=== PATIENT | male | born 1945 | race Caucasian/White ===

== ENCOUNTER → 2016-12-28 14:00 | Outpatient (CLI) | payer MEDICARE, OTHER ==
[2016-12-28 14:36] LABS: BASOPHILS 0.5 % (0.0-2.0); EOSINOPHILS 4.2 % (0-7); HEMATOCRIT 44.7 % (42.0-54.0); HEMOGLOBIN 14.8 g/dL (13.5-17.5); IMMATURE GRANULOCYTES 0.2 % (0-5); MCH 30.9 pg (26.0-34.0); MCHC 33.1 g/dL (31.0-37.0); MCV 93.3 fL (80.0-100.0); MEAN PLATELET VOLUME 9.9 fL (7.4-10.4); MONOCYTES 5.1 % (2-11); PLATELET COUNT 168 10x3/uL (130-400); RBC 4.79 10x6/uL (4.20-6.10); RDW 13.3 % (11.5-14.5); WBC 5.5 10x3/uL (4.8-10.8)
[2016-12-28 14:47] LABS: HEMOGLOBIN A1C 5.8 % (4.8-6.0)
[2016-12-28 15:06] LABS: ALBUMIN 3.9 g/dL (3.4-5.0); ANION GAP 10.6 mmol/L (8-16); BILIRUBIN - TOTAL 0.35 mg/dL (0.2-1.3); CALCIUM 8.7 mg/dL (8.5-10.1); CARBON DIOXIDE 29.5 mmol/L (21.0-32.0); CHOL - HDL RATIO 3.9 ratio (2.3-4.9); CREATININE - SERUM 1.1 mg/dL (0.6-1.3); LDL-HDL RATIO 1.7 ratio (1.5-3.5); POTASSIUM - SERUM 4.1 mmol/L (3.5-5.1); PROTEIN - SERUM 7.6 g/dL (6.4-8.2); THYROID STIMULATING HORMONE 3.14 uIU/mL (0.36-3.74)
== END | disposition home or self-care (01) ==
LOC: D.LAB 14:00
PROVIDERS: Family Medicine
DX: J44.9 Chronic obstructive pulmonary disease, unspecified (principal); R73.9 Hyperglycemia, unspecified; E03.8 Other specified hypothyroidism; Z12.5 Encounter for screening for malignant neoplasm of prostate

== ENCOUNTER 2019-06-19 15:51 | Emergency (ER) | payer MEDICARE, BC ==
[~2019-06-19] VITALS: Ht 190.5 cm; Wt 104.5 kg
[2019-06-19 15:54] VITALS: Ht 190.5 cm; Wt 104.5 kg
[2019-06-19 16:22] LABS: BASOPHILS 0.1 % (0-2); EOSINOPHILS 0.1 % (0-7); HEMATOCRIT 51.2 % (42.0-54.0); HEMOGLOBIN 17.7 g/dL (13.5-17.5); IMMATURE GRANULOCYTES 0.3 % (0-5); LYMPHOCYTES 9.9 % (15-50); MCH 29.6 pg (26.0-34.0); MCHC 34.6 g/dL (31.0-37.0); MCV 85.6 fL (80.0-100.0); MEAN PLATELET VOLUME 10.2 fL (7.4-10.4); MONOCYTES 5.8 % (2-11); NEUTROPHILS 83.8 % (40-80); PLATELET COUNT 165 10x3/uL (130-400); RBC 5.98 10x6/uL (4.20-6.10); RDW 14.8 % (11.5-14.5); WBC 14.3 10x3/uL (4.8-10.8)
[2019-06-19 16:30] LABS: APPEARANCE CLEAR (CLEAR); BILIRUBIN NEGATIVE (NEGATIVE); COLOR YELLOW (YELLOW); GLUCOSE NEGATIVE (NEGATIVE); KETONE NEGATIVE (NEGATIVE); NITRITE NEGATIVE (NEGATIVE); PROTEIN NEGATIVE (NEGATIVE); SPECIFIC GRAVITY 1.025 (1.005-1.020); UROBILINOGEN NORMAL (NORMAL)
[2019-06-19 16:33] LABS: WHITE CELLS - URINE OCC /hpf (0-5)
[2019-06-19 16:40] LABS: ALBUMIN 3.7 g/dL (3.4-5.0); BILIRUBIN - TOTAL 0.55 mg/dL (0.2-1.3); CARBON DIOXIDE 22.4 mmol/L (21.0-32.0); CREATININE - SERUM 1.7 mg/dL (0.6-1.3); POTASSIUM - SERUM 4.4 mmol/L (3.5-5.1); PROTEIN - SERUM 7.3 g/dL (6.4-8.2)
[2019-06-19] MEDS ORDERED: HYDROCODON-ACE1 EA10 PO (19:21)
[2019-06-19 20:05] VITALS: BP 133/73
== END 2019-06-19 20:06 | disposition home or self-care (01) ==
LOC: D.ER 15:51
PROVIDERS: Family Medicine
DX: N39.9 Disorder of urinary system, unspecified (principal); N28.9 Disorder of kidney and ureter, unspecified

== ENCOUNTER 2020-02-15 06:09 | Day surgery (SDC) | payer MEDICARE, BC ==
[~2020-02-15] VITALS: Ht 190.5 cm; Wt 104.3 kg
--- NOTE | ~2020-02-15 | HP ---
PATIENT: JITENDRA REICH MEDICAL RECORD: [id number] ACCOUNT: [id number] LOCATION:[facility] : 49 ADMISSION DATE: 02/15/20 PCP: HONEY GUZMAN HISTORY AND PHYSICAL EXAMINATION HISTORY OF PRESENT ILLNESS: Mr. Reich is a 74-year-old male with a severe hoarseness and right vocal cord lesion. He has been admitted for microsuspension laryngoscopy, excision of the lesion. PAST SURGICAL HISTORY: Includes herniated disk surgery, knee replacements in 2014, disk surgery on his back in 2006, neck in 2013. SOCIAL HISTORY: Tobacco history, quit smoking 15 years ago. CURRENT MEDICATIONS: Include Fioricet, testosterone, trazodone. ALLERGIES: No known drug allergies. PHYSICAL EXAMINATION: GENERAL: He has extremely hoarse voice. FACE: Normal, symmetric, no lesions. EYES: Sclerae and conjunctivae are normal. EARS: Canals and TMs are normal. NOSE: He has some septal deviation, no masses or polyps. ORAL CAVITY AND OROPHARYNX: Tongue protrudes in midline. Pharynx is normal. NECK: No masses, no adenopathy. Laryngoscopy reveals a domed, slightly erythematous, rounded lesion undersurface of the anterior half of the right cord that is preventing cord closure. CHEST: Clear. CARDIOVASCULAR: Regular rate and rhythm, no murmur. EXTREMITIES: Normal. IMPRESSION: Severe hoarseness, right vocal cord lesion. PLAN: Microsuspension laryngoscopy excision of the lesion, pathology to rule out carcinoma. TRANSINT:[id number] Voice Confirmation ID: [id number] DOCUMENT ID: [id number] DEIDRA MCCRAY MD CC: [id number] DICTATION DATE: 02/11/20 1027 BABY ATTENDANT: 02/11/20 1109 [id number] [place] [address]
--- NOTE | ~2020-02-15 | OP ---
PATIENT NAME: JITENDRA TRUJILLO MEDICAL RECORD: [id number] :49 LOCATION:[facility] ADMISSION DATE: SURGEON: DAMIR MONTOYA MD DATE OF OPERATION: 02/15/2020 PREOPERATIVE DIAGNOSES: Hoarseness and right true vocal cord lesion. POSTOPERATIVE DIAGNOSES: Hoarseness and right true vocal cord lesion. PROCEDURE: Microsuspension laryngoscopy, excision of right vocal cord lesion. SURGEON: aDmir Montoya MD ANESTHESIA: General orotracheal. BLOOD LOSS: Less than 1 cc. SPECIMENS: 1. Right true vocal cord lesion. 2. Left vocal cord biopsy. COMPLICATIONS: None. DISPOSITION: Recovery stable. FINDINGS: On laryngoscopy, the hypopharynx and larynx were negative except for the lesion on the cord. On the right side, anteriorly starting about the mid cord anteriorly, about 5-mm, it was definitely only on the inferior surface of the cord. In the office, it looked fairly benign, smooth and cystic; however, it was a granular exophytic, lobulated and somewhat friable lesion, somewhat like a papilloma, but softer and more friable. There was a lesion on the left cord that looked more like just a small polypoid lesion. It was not opposite the right cord lesion, was more anterior and even more on the inferior surface of the cord, but not quite to the subglottis, I just excised that with a simple biopsy. DESCRIPTION OF PROCEDURE: He was brought to the operating room and sedated, intubated with a #6 ET tube by anesthesia. The table was turned 90 degrees. Head drape was applied. A plastic upper tooth guard was placed and he was examined. Oral cavity and pharynx were examined with a headlight and palpation. Then, a Kleinsasser J laryngoscope was inserted. The hypopharynx, piriforms, posterior and lateral pharyngeal augustin, base of tongue, vallecula were normal. Epiglottis was normal. The supraglottic larynx was all normal. The postcricoid area was normal. Did have some increased secretions suctioned out to get a good look at the anterior retinoid area, was all normal. Subglottis and upper trachea were normal down to the level of the cuff of the tube and then the cords, that right cord lesion, was easily identifiable. It was red, lobulated, friable, already bleeding a little bit, grasping with an upbiting, but mainly a cup forceps, moving it medially, definitely moved around easily, nice demarcated borders on the inferior surface of the cord, not close to the margin of the cord at all, was able to excise that nicely with upbiting scissors. On the left cord, there was a small nodular polypoid lesion, it was really well below the cord anteriorly, more anteriorly than the mass on the right side with a 1-mm cup forceps I just removed that quickly with some upbiting scissors to not tear that. With that removed nicely, both were sent for path. There was really no OPERATIVE REPORT [id number] JITENDRA TRUJILLO significant bleeding. He was awakened, extubated, and transported to recovery in good condition. No complications. TRANSINT:[id number] Voice Confirmation ID: [id number] DOCUMENT ID: [id number] DAMIR MONTOYA MD CC: [id number] DICTATION DATE: 02/15/2055 ACIDITY TESTER: 02/15/20 1122 [address] [facility] [address] [place] [address]
[~2020-02-15 06:09] MED LIST: HYDROCODON-ACE1 EA10 PO; TRAZODONE HCL150 MG PO
[2020-02-15 06:35] LABS: HEMATOCRIT 50.3 % (42.0-54.0); HEMOGLOBIN 16.3 g/dL (13.5-17.5); MCH 29.2 pg (26.0-34.0); MCHC 32.4 g/dL (31.0-37.0); MCV 90.1 fL (80.0-100.0); MEAN PLATELET VOLUME 9.5 fL (7.4-10.4); RBC 5.58 10x6/uL (4.20-6.10); RDW 16.3 % (11.5-14.5); WBC 7.2 10x3/uL (4.8-10.8)
[2020-02-15 07:25] VITALS: BP 116/81; Ht 190.5 cm; Wt 104.3 kg
--- NOTE | 2020-02-15 11:22 | NUR ---
1110 DISCONTINUED BNC 2L/MIN. PT OXYGEN SATURATION IS CURRENTLY 97%.
--- NOTE | 2020-02-15 12:21 | NUR ---
1200 PT HOLDING OXYGEN SATURATION LEVEL NEAR PREOP VS. HEART RATE DOWN TO 88 BEATS PER MINUTE. NO C/O CHEST PAIN OR SOB. PT STATES HE IS READY TO GO HOME. IV DC'D. CATHETER TIP INTACT. NO BLEEDING AT SITE. BANDAID APPLIED. PT VOICES UNDERSTANDING OF DISCHARGE INSTRUCTIONS WHICH INCLUDES SOFT DIET AND LIGHT ACTIVITY FOR A WEEK.
== END 2020-02-15 12:15 | disposition home or self-care (01) ==
LOC: D.OPS 06:09 → D.PAN 08:15 → D.OPS 08:30
PROVIDERS: Anesthesiology; ATTEND Otolaryngology
DX: R49.0 Dysphonia (principal); J38.3 Other diseases of vocal cords